=== PATIENT | male | born 1945 | race American Indian/Alaskan Native ===

== ENCOUNTER 2021-01-19 05:25 | Emergency (ER) | payer MEDICARE, MEDICAID ==
[2021-01-19] MEDS ORDERED: Diphtheria/Tetanus Toxoids,Adult (Td) 0.5 ML Syringe IM ONE (06:22)
[2021-01-19] MEDS ORDERED: Bacitracin/Neomycin/Polymyxin B Oint 0.9 GM U/D Packet TOP ONE (06:25)
[2021-01-19] MEDS ORDERED: Diphtheria,Pertussis(Acell),Tetanus Vaccine 0.5 ML Syringe IM ONE (06:28)
--- NOTE | 2021-01-19 06:34 | EDM.PDOC ---
ED HPI GENERAL MEDICAL PROBLEM - General Chief Complaint: Laceration Stated Complaint: laceration Time Seen by Provider: 01/19/21 06:00 Source of Information: Reports: EMS, Prison Records History Limitations: Reports: Altered Mental Status - History of Present Illness INITIAL COMMENTS - FREE TEXT/NARRATIVE: Wili is a 75 year old male from [facility] who presents per EMS with a laceration to left brow. Staff had the nursing had found him in bed, wound had clotted. Unsure of how he acquired injury but EMS did note some blood to the frame of the door in the bathroom. Patient denies any other pain elsewhere, does have history of dementia. Is on Plavix but unlikely any actual fall as no blood noted on the floor. Is cooperative. Oriented to person only. Onset: Today Duration: Hour(s): Location: Reports: Face Associated Symptoms: Reports: Confusion (chronic related to his dementia). Denies: Chest Pain, Fever/Chills, Nausea/Vomiting, Shortness of Breath Treatments [employer]: Reports: Dressing(s) - Related Data Allergies Allergy/AdvReac Type Severity Reaction Status Date / Time No Known Allergies Allergy Verified 01/19/21 05:36 Home Meds: Home Meds Acetaminophen 650 mg PO TID 01/19/21 [History] Aspirin 81 mg PO DAILY 01/19/21 [History] Clopidogrel Bisulfate [Clopidogrel] 75 mg PO DAILY 01/19/21 [History] Magnesium Hydroxide [Milk of Magnesia] 30 ml PO DAILY PRN 01/19/21 [History] Melatonin 5 mg PO BEDTIME 01/19/21 [History] Pantoprazole Sodium [Protonix] 40 mg PO DAILY 01/19/21 [History] Potassium Chloride [Klor-Con M20] 20 meq PO BID 01/19/21 [History] Psyllium Husk (With Sugar) [Metamucil Powder] 1 tbsp PO BID 01/19/21 [History] Sertraline HCl 50 mg PO DAILY 01/19/21 [History] Sodium Bicarbonate 325 mg PO BID 01/19/21 [History] amLODIPine Besylate [Amlodipine Besylate] 10 mg PO DAILY 01/19/21 [History] atorvaSTATin Calcium [Atorvastatin Calcium] 80 mg PO BEDTIME 01/19/21 [History] hydroCHLOROthiazide [Hydrochlorothiazide] 25 mg PO DAILY 01/19/21 [History] Past Medical History HEENT History: Reports: Cataract Cardiovascular History: Reports: High Cholesterol, Hypertension Gastrointestinal History: Reports: Chronic Diarrhea, Diverticulosis Genitourinary History: Reports: Chronic Renal Insuffiency Neurological History: Reports: Alzheimers Disease Psychiatric History: Reports: Dementia Endocrine/Metabolic History: Reports: Hypokalemia Social & Family History - Tobacco Use Tobacco Use Status *Q: Unknown Ever Used Tobacco - Caffeine Use Caffeine Use: Reports: None - Recreational Drug Use Recreational Drug Use: No ED ROS GENERAL - Review of Systems Review Of Systems: See Below Constitutional: Denies: Fever, Chills HEENT: Denies: Ear Pain, Sinus Problem, Throat Pain, Vertigo Respiratory: Denies: Shortness of Breath Cardiovascular: Denies: Chest Pain GI/Abdominal: Denies: Abdominal Pain, Nausea, Vomiting Musculoskeletal: Reports: No Symptoms Skin: Reports: Wound Neurological: Reports: Confusion, Pre-Existing Deficit ED EXAM, SKIN/RASH Exam: See Below Exam Limited By: Altered Mental Status (dementia) General Appearance: Alert, WD/WN, No Apparent Distress Eye Exam: Bilateral Eye: Other (pupils irregular, sluggish, cataract extraction) Ears: Normal External Exam, Normal TMs Nose: Normal Inspection, Normal Mucosa, No Blood Throat/Mouth: Normal Inspection, Normal Oropharynx Head: Facial Swelling (swelling noted to left brow) Neck: Normal Inspection, Supple, Non-Tender Neurological: Alert, Oriented (person only, does follow commands, answers simple questions) Skin: Other (laceration to left brow) Location, Skin: Face ED SKIN PROCEDURES - Laceration/Wound Repair Left Brow Appearance: Subcutaneous, Irregular Anesthetic Type: Local Local Anesthesia - Lidocaine (Xylocaine): 1% Plain Local Anesthetic Volume: 4cc Skin Prep: Other (nicolette-clens) Exploration/Debridement/Repair: Wound Explored, Explored to Base, Other (blood clot removed from laceration to better approximate the wound edges as is dried at this point) Closed with: Sutures Lac/Wound length In cm: 4 (3.5 by 0.5 Y shaped laceration) Suture Size: 6-0 # of Sutures: 9 Suture Type: Nylon, Interrupted, Simple Sterile Dressing Applied: Nurse Tetanus Status Addressed: Yes Complications: No Course - Vital Signs Last Recorded V/S: Last Vital Signs Temp 97.8 F 01/19/21 05:25 Pulse 56 L 01/19/21 05:25 Resp 16 01/19/21 05:25 BP 144/69 H 01/19/21 05:51 Pulse Ox 99 01/19/21 05:25 - Orders/Labs/Meds Orders: Active Orders 24 hr Category Date Time Status Vaccines to be Administered [RC] PER UNIT ROUTINE Care 01/19/21 06:22 Active Diphth,Pertuss(Acell),Tet Vac [Boostrix] Med 01/19/21 06:28 Once 0.5 ml IM .ONCE ONE Medication Orders Diphtheria/Tetanus/Acell Pertussis (Diphtheria,Pertussis(Acell),Tetanus Vaccine 0.5 Ml Syringe) 0.5 ml IM .ONCE ONE Stop: 01/19/21 06:29 Meds: Medications Generic Name Dose Route Start Last Admin Trade Name Freq PRN Reason Stop Dose Admin Diphtheria/Tetanus/Acell Pertussis 0.5 ml 01/19/21 06:28 Diphtheria,Pertussis(Acell),Tetanus Vaccine 0.5 Ml Syringe IM 01/19/21 06:29 .ONCE ONE Discontinued Medications Generic Name Dose Route Start Last Admin Trade Name Freq PRN Reason Stop Dose Admin Lidocaine HCl 5 ml 01/19/21 06:02 01/19/21 06:05 Lidocaine 1% 5 Ml Sdv INJECT 01/19/21 06:03 5 ml ONETIME ONE Administration Neomycin/Polymyxin/Bacitracin 1 each 01/19/21 06:25 Bacitracin/Neomycin/Polymyxin B Oint 0.9 Gm U/D Packet TOP 01/19/21 06:26 ONETIME ONE Tetanus/Diphtheria Toxoids 0.5 ml 01/19/21 06:22 Diphtheria/Tetanus Toxoids,Adult (Td) 0.5 Ml Syringe IM 01/19/21 06:23 .ONCE ONE Departure - Departure Time of Disposition: 06:36 Disposition: Home, Self-Care 01 Condition: Good Clinical Impression: Laceration of brow without complication - Discharge Information *PRESCRIPTION DRUG MONITORING PROGRAM REVIEWED*: No *COPY OF PRESCRIPTION DRUG MONITORING REPORT IN PATIENT CIPRIANO: No Instructions: Laceration Care, Adult Referrals: Chandan Pompa MD [Primary Care Provider] - Additional Instructions: 1. Keep wound clean and dry 2. Cover with triple antibiotic daily for 3 days 3. Wound care instructions 4. Monitor for increased redness, swelling, pain, drainage 5. Sutures out in 5 days 6. Follow up with any concerns or questions Sepsis Event Note (ED) - Evaluation Sepsis Screening Result: No Definite Risk - Focused Exam Vital Signs: Vital Signs Temp Pulse Resp BP Pulse Ox 01/19/21 05:51 144/69 H 01/19/21 05:25 97.8 F 56 L 16 172/70 H 99 - My Orders Last 24 Hours: My Active Orders 01/19/21 06:22 Vaccines to be Administered [RC] PER UNIT ROUTINE 01/19/21 06:28 Diphth,Pertuss(Acell),Tet Vac [Boostrix] 0.5 ml IM .ONCE ONE - Assessment/Plan Last 24 Hours: My Active Orders 01/19/21 06:22 Vaccines to be Administered [RC] PER UNIT ROUTINE 01/19/21 06:28 Diphth,Pertuss(Acell),Tet Vac [Boostrix] 0.5 ml IM .ONCE ONE
== END 2021-01-19 07:15 | disposition home or self-care (01) ==
LOC: CC.ED 05:25
DX: S01.81XA Laceration without foreign body of other part of head, initial encounter (principal); E78.00 Pure hypercholesterolemia, unspecified; I12.9 Hypertensive chronic kidney disease with stage 1 through stage 4 chronic kidney disease, or unspecified chronic kidney disease; N18.9 Chronic kidney disease, unspecified; G30.9 Alzheimer's disease, unspecified; F02.80 Dementia in other diseases classified elsewhere, unspecified severity, without behavioral disturbance, psychotic disturbance, mood disturbance, and anxiety; Z23 Encounter for immunization; Z79.82 Long term (current) use of aspirin; Z79.02 Long term (current) use of antithrombotics/antiplatelets; Z79.899 Other long term (current) drug therapy; W26.8XXA Contact with other sharp object(s), not elsewhere classified, initial encounter
CPT/HCPCS: 12013; 90471; 90715; 99283; 99284-25

== ENCOUNTER 2025-02-08 11:20 | Emergency (ER) | payer MEDICARE, MEDICAID | END 2025-02-08 13:04 | disposition home or self-care (01) | LOC: CC.ED 11:20 | DX: S42.035A Nondisplaced fracture of lateral end of left clavicle, initial encounter for closed fracture (principal); S63.259A Unspecified dislocation of unspecified finger, initial encounter; E78.00 Pure hypercholesterolemia, unspecified; I10 Essential (primary) hypertension; Z79.899 Other long term (current) drug therapy; W18.30XA Fall on same level, unspecified, initial encounter | CPT/HCPCS: 26770; 71045; 73030-LT; 73140-F4; 99283; 99283-25 ==